=== PATIENT | female | born 1945 | race Caucasian/White ===

== ENCOUNTER → 2016-10-10 | Outpatient (CLI) | payer MEDICARE, OTHER ==
[~2016-10-10] MED LIST: ASPIRIN 32325 MG/TAB PO; COLACE 100100 MG/CAP PO; COZAAR 50MG50 MG/TAB PO; SINGULAIR 110 MG/TAB PO; ZYRTEC 10MG10 MG PO
[2016-10-10 16:13] LABS: HIV 1/2 Antibodies Non-Reactive; HIV-1p24 Antigen Non-Reactive
== END ==
LOC: COL.LAB 14:31
PROVIDERS: Orthopaedic Surgery
DX: Z01.812 Encounter for preprocedural laboratory examination (principal); M17.11 Unilateral primary osteoarthritis, right knee

== ENCOUNTER 2016-10-13 09:26 | Outpatient (RCR) | payer MEDICARE, OTHER | END 2016-10-16 12:05 | disposition home or self-care (01) | LOC: WSPT 09:26 | DX: M19.071 Primary osteoarthritis, right ankle and foot (principal) | CPT/HCPCS: G8978-GP; G8979-GP; G8980-GP ==

== ENCOUNTER → 2016-10-16 | Outpatient (REF) ==
[2016-10-16 22:34] LABS: HIV ANTIGEN-ANTIBODY COMBO-AMS Negative (())
== END ==
LOC: ZMSC 12:16
PROVIDERS: Orthopaedic Surgery
DX: Z01.89 Encounter for other specified special examinations (principal)

== ENCOUNTER 2016-11-06 13:23 | Emergency (ER) | payer MEDICARE, OTHER ==
[~2016-11-06] VITALS: Ht 165.1 cm; Wt 70.5 kg
[2016-11-06 13:30] VITALS: BP 128/87; TEMP 98.2
[2016-11-06 14:48] VITALS: PULSE 88
[2016-11-06] MEDS ORDERED: ASPIRIN 32325 MG/TAB PO (14:49)
== END 2016-11-06 14:50 | disposition home or self-care (01) ==
LOC: COL.ER 13:23
DX: H11.32 Conjunctival hemorrhage, left eye (principal); Z79.82 Long term (current) use of aspirin

== ENCOUNTER 2016-11-29 05:33 | Day surgery (SDC) | payer MEDICARE, OTHER ==
[~2016-11-29] VITALS: Ht 165.1 cm; Wt 70.0 kg
[~2016-11-29 05:33] MED LIST changes: -COLACE 100100 MG/CAP PO; -COZAAR 50MG50 MG/TAB PO; -SINGULAIR 110 MG/TAB PO; -ZYRTEC 10MG10 MG PO
[2016-11-29 06:06] VITALS: BP 128/84; PULSE 103; TEMP 97.9
[2016-11-29] MEDS ORDERED: COZAAR 50MG50 MG/TAB PO (06:12)
[2016-11-29] MEDS ORDERED: SINGULAIR 110 MG/TAB PO (06:12)
[2016-11-29] MEDS ORDERED: COLACE 100100 MG/CAP PO (06:13)
[2016-11-29] MEDS ORDERED: ZYRTEC 10MG10 MG PO (06:14)
[2016-11-29 06:55] VITALS: BP 129/73; PULSE 83
[2016-11-29 07:10] VITALS: BP 136/80; PULSE 80
[2016-11-29 07:25] VITALS: BP 130/53; PULSE 78
[2016-11-29 07:40] VITALS: BP 132/67; PULSE 72
[2016-11-29 08:52] VITALS: BP 132/60; PULSE 87
== END 2016-11-29 08:00 | disposition home or self-care (01) ==
LOC: SDCO 05:33
DX: M25.861 Other specified joint disorders, right knee (principal); Z96.651 Presence of right artificial knee joint; Z98.890 Other specified postprocedural states
CPT/HCPCS: J1100; J2405; J2704; J3010; J7030

== ENCOUNTER 2016-12-01 14:58 | Emergency (ER) | payer MEDICARE, OTHER ==
[~2016-12-01] VITALS: Ht 165.1 cm; Wt 70.5 kg
[~2016-12-01 14:58] MED LIST changes: +COLACE 100100 MG/CAP PO; +COZAAR 50MG50 MG/TAB PO; +SINGULAIR 110 MG/TAB PO; +ZYRTEC 10MG10 MG PO
[2016-12-01 15:50] VITALS: BP 122/63; PULSE 74; TEMP 98.1
== END 2016-12-01 16:22 | disposition home or self-care (01) ==
LOC: COL.ER 14:58
DX: M79.661 Pain in right lower leg (principal); I10 Essential (primary) hypertension

== ENCOUNTER 2017-01-03 09:00 | Outpatient (RCR) | payer MEDICARE, OTHER | END 2017-01-03 12:08 | disposition home or self-care (01) | LOC: WSPT 09:00 | DX: Z47.89 Encounter for other orthopedic aftercare (principal); R26.89 Other abnormalities of gait and mobility; M25.861 Other specified joint disorders, right knee | CPT/HCPCS: G8978-GP; G8979-GP; G8980-GP ==

== ENCOUNTER → 2017-02-26 | Outpatient (CLI) | payer MEDICARE, OTHER | LOC: MC.RAD 14:00 | DX: Z12.31 Encounter for screening mammogram for malignant neoplasm of breast (principal) ==

== ENCOUNTER → 2019-04-11 | Outpatient (CLI) | payer MEDICARE, OTHER | LOC: MC.RAD 13:36 | DX: Z12.31 Encounter for screening mammogram for malignant neoplasm of breast (principal); N63.14 Unspecified lump in the right breast, lower inner quadrant ==

== ENCOUNTER → 2019-04-17 | Outpatient (CLI) | payer MEDICARE, OTHER | LOC: MC.RAD 13:49 | DX: N60.01 Solitary cyst of right breast (principal) ==

== ENCOUNTER → 2024-05-22 | Outpatient (CLI) | payer MEDICARE, OTHER | LOC: MC.RAD 08:55 | DX: Z12.31 Encounter for screening mammogram for malignant neoplasm of breast (principal) ==